=== PATIENT | female | born 1980 | race Asian ===

== ENCOUNTER 2017-09-01 13:06 | Inpatient (IN) | payer OTHER ==
[~2017-09-01] VITALS: Ht 154.9 cm; Wt 63.0 kg
--- NOTE | 2017-09-02 02:41 | NUR ---
09/02/17 0241 Jessica Rivera 0230: PT IS BACK TO [facility] ROOM. SPOUSE AND BABY ARE IN ROOM WHEN WE ARRIVE, ALONG WITH OTHER FAMILY MEMBERS THEY ARE ASKED TO WAIT IN WAITING AREA. IV IN LEFT HAND IS 18G, DRESSING CDI.
--- NOTE | 2017-09-02 14:08 | PR ---
[facility] [address] [facility] [place] [address] Signed PP Progress Notes Datetime Report Generated by CPN: 09/02/2017 14:07 SUBJECTIVE: [id number] Pain: Within normal limits Nausea/Vomiting: Denies Vital Signs: [id number] Vital Signs: Reviewed; Within Normal Limits EXAM: [id number] Abdomen/Uterus: Normal Lochia: Normal Extremities: Normal Incision: Normal IMPRESSION/PLAN/PROCEDURES: [id number] Impression: Normal progression Plan: Continue present management Procedures: None Progress Notes: Doing well, without complaint, tolerating food well. Increase activitiy as tolerated Signing Physician: Cezar Huang MD Copies: ~ *Electronically Signed* 09/02/17 1407 CEZAR HUANG MD PATIENT NAME: SARA DUFFY PROGRESS NOTE DATE OF : 84 PHYSICIAN: CEZAR HUANG MD RPT #: [id number] REPORT IS CONFIDENTIAL AND NOT TO BE RELEASED WITHOUT AUTHORIZATION
--- NOTE | 2017-09-03 12:04 | PR ---
[facility] [address] [place] [address] Signed PP Progress Notes Datetime Report Generated by CPN: 09/03/2017 12:04 SUBJECTIVE: [id number] Pain: Within normal limits Nausea/Vomiting: Denies Vital Signs: [id number] Vital Signs: Reviewed; Within Normal Limits Notable Details: PP Hgb/Hct = 10.9/29.5 EXAM: [id number] Abdomen/Uterus: Normal Lochia: Normal Extremities: Normal Incision: Normal IMPRESSION/PLAN/PROCEDURES: [id number] Impression: Normal progression Plan: Continue present management Procedures: None Progress Notes: Doing well, no complaints. Plan home tomorrow. Signing Physician: Cezar Huang MD Copies: ~ *Electronically Signed* 09/03/17 1204 CEZAR HUANG MD PATIENT NAME: SARA DUFFY PROGRESS NOTE DATE OF : 84 PHYSICIAN: CEZAR HUANG MD RPT #: [id number] REPORT IS CONFIDENTIAL AND NOT TO BE RELEASED WITHOUT AUTHORIZATION
--- NOTE | 2017-09-05 10:02 | PR ---
[facility] [address] [place] [address] Signed PP Progress Notes Datetime Report Generated by CPN: 09/05/2017 10:02 SUBJECTIVE: [id number] Pain: Within normal limits Nausea/Vomiting: Denies Vital Signs: [id number] Vital Signs: Reviewed; Within Normal Limits Notable Details: PP Hgb/Hct = 10.9/29.5 EXAM: [id number] Abdomen/Uterus: Normal Lochia: Normal Extremities: Normal Incision: Normal IMPRESSION/PLAN/PROCEDURES: [id number] Impression: Normal progression Plan: Discharge Procedures: None Progress Notes: Doing well, ready to go home. Signing Physician: Cezar Huang MD Copies: ~ *Electronically Signed* 09/05/17 1002 CEZAR HUANG MD PATIENT NAME: SARA DUFFY PROGRESS NOTE DATE OF : 84 PHYSICIAN: CEZAR HUANG MD RPT #: [id number] REPORT IS CONFIDENTIAL AND NOT TO BE RELEASED WITHOUT AUTHORIZATION
--- NOTE | 2017-09-15 09:54 | OR ---
[facility] [address] [place], [place] [address] Signed DATE OF OPERATION: 09/02/2017 SURGEON: Joe Harper MD PREOPERATIVE DIAGNOSES: Nonreassuring heart rate tracing and oligohydramnios. POSTOPERATIVE DIAGNOSES: Nonreassuring heart rate tracing and oligohydramnios. PROCEDURE: Primary low transverse segment section. Delivery of live female infant. GUARD DANCE HALL: Dr. Perea. ANESTHESIA: Epidural. ESTIMATED BLOOD LOSS: 700 mL. COMPLICATIONS: None. DRAINS: Elkins to bladder. FINDINGS: Live female , Apgars 8 and 9. Weight 7 pounds, 10 ounces. Normal uterus. Normal tubes and ovaries bilateral. DESCRIPTION OF PROCEDURE: The patient was brought to the operating room, placed in supine position. After adequate epidural anesthesia was obtained, she was prepped and draped in usual sterile fashion. A Pfannenstiel skin incision was made with a scalpel. Subcutaneous tissue was then dissected with the Bovie and the fascia nicked with scalpel and extended transverse fashion using curved scissors. The underlying abdominal musculature was bluntly and sharply from the fascia above and below the incision. The abdominal musculature was bluntly and sharply along the midline. The peritoneum was Electronically Signed By: JOE HARPER MD 09/15/17 0954 PATIENT NAME: SARA DUFFY OPERATIVE REPORT DATE OF : 84 REPORT #: [id number] PHYSICIAN: JOE HARPER MD PCP: MONAE CAMPOS PAC REPORT IS CONFIDENTIAL AND NOT TO BE RELEASED WITHOUT AUTHORIZATION [facility] [address] [place], [place] [address] Signed grasped with hemostats, elevated, nicked with Metzenbaum scissors and extended in a vertical fashion using Metzenbaum scissors. The Bernabe self-retaining retractor was inserted into the incision and tightened in place. The lower uterine segment was identified. The bladder noted to be well below the area of dissection. The lower uterine segment was carefully nicked with the scalpel in the midline and finger dissection used to open the incision and extend the incision in a transverse fashion. Infant was noted to be in vertex, NIDIA presentation. The infant's head was deep in the pelvis, but the head was delivered from the incision and then the rest of the infant easily delivered from the incision. The mouth and nose were suctioned with bulb syringe while the cord was doubly clamped and cut. The passed off table in good condition to awaiting nurse. The placenta was manually removed and uterine cavity explored a lap pad to remove any retained membranes. An angle stitch of 0 Monocryl was placed at one end incision and a running locking stitch of 0 Monocryl starting at the other end used to close the incision. A 2nd running stitch of 0 Monocryl was used to imbricate the 1st layer. Good hemostasis was noted. The entire pelvis was irrigated, suctioned, examined and a few superficial bleeding spots were cauterized with the Bovie. When good hemostasis was obtained. The Bernabe retractor was removed. A sheet of ACell placed over lower uterine segment to help with healing and then the peritoneum was closed using running stitch of 2-0 Vicryl suture. The abdominal musculature was reapproximated using interrupted stitches of 0 Vicryl suture. The abdominal wall incision was irrigated, suctioned, examined, and any bleeding spots cauterized with the Bovie. Powdered ACell sprinkled on the abdominal musculature to help with healing and then the fascia closed using two running stitch of 0 Vicryl suture meeting in the midline. Subcutaneous tissue was irrigated, suctioned, examined, and any bleeding spots cauterized with the Bovie. Subcutaneous tissue was sprinkled with remaining powdered ACell and then closed using interrupted stitches of 3-0 Vicryl suture. The skin was reapproximated using skin clips. The patient tolerated the procedure well, went to recovery room in good condition. The sponge, needle, and instrument counts were correct at the end of the procedure. Joe Harper MD MJB/MODL /[id number] cc: Deja Perea MD Electronically Signed By: JOE HARPER MD 09/15/17 0954 PATIENT NAME: SARA DUFFY OPERATIVE REPORT DATE OF : 84 REPORT #: [id number] PHYSICIAN: JOE HARPER MD PCP: MONAE CAMPOS PAC REPORT IS CONFIDENTIAL AND NOT TO BE RELEASED WITHOUT AUTHORIZATION [address] [address] Signed Copies: DEJA PEREA MD ~ Electronically Signed By: JOE HARPER MD 09/15/17 0954 PATIENT NAME: SARA DUFFYLEOLA OPERATIVE REPORT DATE OF : 84 REPORT #: [id number] PHYSICIAN: JOE HARPER MD PCP: MONAE CAMPOS PAC REPORT IS CONFIDENTIAL AND NOT TO BE RELEASED WITHOUT AUTHORIZATION
== END 2017-09-05 12:10 | disposition home or self-care (01) | DRG 765 ==
LOC: FBCO 13:06 → FBC 14:16
PROVIDERS: ADMIT General Practice
PROC: 10D00Z1 Extraction of Products of Conception, Low, Open Approach (ICD-10-PCS; principal; 2017-09-02 01:26)
DX: O76 Abnormality in fetal heart rate and rhythm complicating labor and delivery (principal); O41.03X0 Oligohydramnios, third trimester, not applicable or unspecified; Z3A.40 40 weeks gestation of pregnancy; Z37.0 Single live birth; O77.0 Labor and delivery complicated by meconium in amniotic fluid
CPT/HCPCS: 01960; 01961; 36415; 59025; 76818; 85027; C1763; J0690; J2274; J2370; J2405; J2590; J2795; J3010; J3105; J7120

== ENCOUNTER 2019-08-10 08:58 | Day surgery (SDC) | payer OTHER ==
[~2019-08-10] VITALS: Ht 154.9 cm; Wt 52.2 kg
--- NOTE | ~2019-08-10 | OR ---
[address] [address] [place] DATE OF OPERATION: 08/10/2019 SURGEON: Joe Harper MD Patient of Dr. Harper. PREOPERATIVE DIAGNOSIS: Missed . POSTOPERATIVE DIAGNOSIS: Missed . PROCEDURE: Suction D and C. ANESTHESIA: Monitored anesthesia care (MAC). ESTIMATED BLOOD LOSS: 200 mL. SPECIMEN: Products of conception. DRAINS: None. PACKING: None. FINDINGS: Vagina, no blood. Cervix, thick, closed. Uterus, 8-week size, anterior, normal shape, soft, mobile. No adnexal masses. Moderate amount of normal-appearing tissue within the cavity. COMPLICATIONS: None. DESCRIPTION OF PROCEDURE: The patient was brought to the operating room and placed in supine position. After PATIENT NAME: SARA DUFFY OPERATIVE REPORT DATE OF : 84 REPORT #: [id number] PHYSICIAN: JOE HRAPER MD PCP: MONAE CAMPOS PAC REPORT IS CONFIDENTIAL AND NOT TO BE RELEASED WITHOUT AUTHORIZATION [address] [address] [place] adequate anesthesia was obtained, she was placed in dorsal lithotomy position, prepped and draped in usual sterile fashion. A weighted speculum was placed in the vagina and the anterior lip of the cervix grasped with an Allis clamp. The cervix was then serially dilated up to a #9-Nicaraguan dilator. A #9 curved suction tip curette was then attached to the suction machine and tested under adequate suction. The curette was then carefully introduced into the uterine cavity up to the fundus, and scraped in the 360-degree fashion removing moderate amount of normal-appearing products of conception. The curetting was continued till no additional tissue was removed. 20 units of Pitocin was put in the IV during the procedure. When the curettings were stopped, the Allis clamp was removed and all instruments removed and the uterus was repalpated and noted to be much smaller and more firm. Cervix was noted to have good hemostasis. The patient tolerated the procedure well, went to recovery room in good condition. The sponge and instrument count correct at the end of procedure. Uterine curettings were sent to Pathology for identification. MD DANETTE Jenkins/NATASHA /[id number] Copies: ~ PATIENT NAME: SARA DUFFY OPERATIVE REPORT DATE OF : 84 REPORT #: [id number] PHYSICIAN: JOE HARPER MD PCP: MONAE CAMPOS PAC REPORT IS CONFIDENTIAL AND NOT TO BE RELEASED WITHOUT AUTHORIZATION
[2019-08-10] MEDS ORDERED: FISH OIL 1,0001 EAC5 PO (09:17)
[2019-08-10] MEDS ORDERED: PRENATAL 19 TA1 EACH PO (09:17)
--- NOTE | 2019-08-10 10:50 | NUR ---
08/10/19 1050 Raina Willis 1037- PT ARRIVES TO PACU NONAROUSABLE TO NOXIOUS STIMULI WITH AN OPA IN PLACE AND NEEDING A JAW LIFT TO MAINTAIN AIRWAY PATENCY. RESP EVEN AND UNLABORED. OXYGEN SAT HIGH 90'S TO 100% ON 6L VIA MASK. MAME MCPHERSON RN TAKES OVER JAW LIFT FROM JERRI REYNOLDS CRNA. 1046- PT IS NODDING HER HEAD TO INSTRUCTION AND IS ABLE TAKE OUT HER OWN OPA. 1049- DR. HUANG AT THE BEDSIDE TO TALK WITH THE PT.
--- NOTE | 2019-08-10 11:10 | NUR ---
ICED WATER, CRACKERS AND APPLESAUCE GIVEN. SPOUSE AT THE BEDSIDE. CALL LIGHT WITHIN REACH.
[2019-08-10] MEDS ORDERED: NORCO 5-325 TA1 EACH PO (11:39)
[2019-08-10] MEDS ORDERED: MOTRIN IB200 MG PO (11:40)
--- NOTE | 2019-08-10 13:33 | NUR ---
LE 1240: PATIENT PUSHES HER CALL LIGHT AND ASKS TO GO TO THE BATHROOM. PATIENT AMBULATES WITH STANDBY FROM ME. SHE DOES THAT WELL AND DENIES DIZZINESS. PATIENT VOIDS 150 ML CLEAR YELLOW URINE AND AMBULATES BACK TO HER ROOM. DISCHARGE INSTRUCTIONS ARE GIVEN AND PATIENT AND SPOUSE BOTH VERBALIZE UNDERSTANDING. PATIENT IS GETTING DRESSED IN PRESENCE OF SPOUSE AND THEN SHE TRANSFERS HERSELF TO THE WHEELCHAIR AND THEN TO PERSONAL VEHICLE AND SHE TOLERATES THAT WELL.
== END 2019-08-10 12:55 | disposition home or self-care (01) ==
LOC: OPS 08:58 → DS 08:58 → OPS 09:45 → DS 09:45 → OPS 12:55
PROVIDERS: General Practice
PROC: 10D17ZZ Extraction of Products of Conception, Retained, Via Natural or Artificial Opening (ICD-10-PCS; principal; 2019-08-10 09:45)
DX: O02.1 Missed abortion (principal); Z88.0 Allergy status to penicillin; Z79.899 Other long term (current) drug therapy
CPT/HCPCS: 00952; J1100; J1885; J2001; J2590; J2704; J7121

== ENCOUNTER 2020-11-06 15:15 | Inpatient (IN) | payer OTHER ==
[~2020-11-06] VITALS: Ht 154.9 cm; Wt 65.8 kg
[~2020-11-06 15:15] MED LIST: FISH OIL 1,0001 EAC5 PO; MOTRIN IB200 MG PO; NORCO 5-325 TA1 EACH PO; PRENATAL 19 TA1 EACH PO
--- NOTE | 2020-11-11 08:45 | NUR ---
11/11/20 0845 Raina Willis 0836- PT ARRIVES TO [facility] ROOM [facility]. PT REPORTS NO PAIN OR NAUSEA. RESP EVEN AND UNLABORED. OXYGEN SAT MID TO HIGH 90'S ON RA. BABY TO LEFT BREAST. 20G IV TO THE RIGHT WRIST WITH LR AND 20 UNITS OF PITOCIN. PT REPORTS NO PAIN TO THE IV SITE.
--- NOTE | 2020-11-11 11:06 | OR ---
[facility] [address] [facility] [place], [place] [address] Signed DATE OF OPERATION: 11/11/2020 SURGEON: Joe Harper MD PREOPERATIVE DIAGNOSIS: Term , previous section. POSTOPERATIVE DIAGNOSIS: Term , previous section. PROCEDURE: Repeat low transverse segment section, delivery of a live male infant. WOOD PREPARATION SUPERVISOR: Beatriz Stafford DO. ANESTHESIA: Spinal. ESTIMATED BLOOD LOSS: 600 mL. COMPLICATIONS: None. DRAINS: Elkins to bladder. FINDINGS: Live male , Apgars 9 and 9. Weight 7 pounds 12 ounces. Normal uterus, normal tubes and ovaries bilateral. DESCRIPTION OF PROCEDURE: The patient was brought to the operating room, placed in supine position. After adequate spinal anesthesia was obtained, she was prepped and draped in usual sterile fashion. Elkins catheter was placed in the bladder. A Pfannenstiel skin incision was made through previous surgical scar using a scalpel. Subcutaneous tissue was dissected with the Bovie. The fascia was nicked with scalpel and extended transverse fashion using curved scissors. The underlying abdominal musculature was then bluntly sharply from the fascia above and below the incision. The abdominal musculature Electronically Signed By: JOE HARPER MD 11/11/20 1106 PATIENT NAME: SARA DUFFY OPERATIVE REPORT DATE OF : 84 REPORT #: [id number] PHYSICIAN: JOE HARPER MD PCP: MONAE CAMPOS PAC REPORT IS CONFIDENTIAL AND NOT TO BE RELEASED WITHOUT AUTHORIZATION [facility] [address] [place], [place] [address] Signed was along the midline using finger dissection and scissors. The peritoneum was grasped with hemostats, elevated, nicked with Metzenbaum scissors and extended in a vertical fashion using Metzenbaum scissors. The Bernabe self-retaining retractor was inserted into the incision and tightened in place. The lower uterine segment was identified and carefully nicked with scalpel. Finger dissection was used to extend the incision in transverse fashion. Clear fluid came from the incision. The infant was noted to be in vertex LOP presentation. The 's head easily delivered from the incision. The rest of the was easily delivered from the incision and the cord doubly clamped and cut. The infant was passed off table in good condition to awaiting nurse. The placenta was manually removed. Uterine cavity explored with a lap pad to remove any retained membranes. An angle stitch of 0 Monocryl was placed at one end of the incision and a running locking stitch of 0-Monocryl starting at the other end used to close the incision. A 2nd running stitch of 0 Monocryl was used to imbricate the 1st layer. Good hemostasis was noted. The entire pelvis was irrigated, suctioned, and examined, and any superficial bleeding spots were cauterized with the Bovie. The Bernabe retractor was removed and sheet of ACell placed over the lower uterine segment to help with healing. The anterior wall peritoneum was closed using running stitch of 2-0 Vicryl suture. The abdominal musculature was reapproximated using interrupted stitches of 0 Vicryl suture. The abdominal wall incision was irrigated, suctioned, and examined, and any bleeding spots cauterized with the Bovie. When good hemostasis was obtained, powdered ACell sprinkled over the abdominal musculature to help with healing. The fascia was then closed using two running stitches of 0 Vicryl suture meeting in the midline. The subcutaneous tissue was irrigated, suctioned, and examined, and any bleeding spots cauterized with the Bovie. The subcutaneous tissue was then closed using interrupted stitches of 3-0 Vicryl suture. The skin was reapproximated using skin clips. The patient tolerated the procedure well, went to recovery room in good condition. The sponge, needle, instrument count were correct at the end of the procedure. Joe Harper MD MJB/MODL /[id number] Copies: Electronically Signed By: JOE HARPER MD 11/11/20 1106 PATIENT NAME: SARA DUFFY OPERATIVE REPORT DATE OF : 84 REPORT #: [id number] PHYSICIAN: JOE HARPER MD PCP: MONAE CAMPOS PAC REPORT IS CONFIDENTIAL AND NOT TO BE RELEASED WITHOUT AUTHORIZATION [facility] [address] [place] [id number] Signed ~ Electronically Signed By: JOE HARPER MD 11/11/20 1106 PATIENT NAME: TATISARASHER COMBS [facility] OPERATIVE REPORT DATE OF : 84 REPORT #: [id number] PHYSICIAN: JOE HARPER MD PCP: MONAE CAMPOS PAC REPORT IS CONFIDENTIAL AND NOT TO BE RELEASED WITHOUT AUTHORIZATION
--- NOTE | 2020-11-12 08:36 | PR ---
[facility] [address] [facility] [place] [address] Signed PP Progress Notes Datetime Report Generated by CPN: 11/12/2020 08:36 SUBJECTIVE: [id number] Pain: Within Normal Limits Nausea/Vomiting: Denies Vital Signs: [id number] Vital Signs: Reviewed; Within Normal Limits Notable Details: PP Hjgb/Hct = 9.8/28.5 Abdomen/Uterus: Normal Lochia: Normal Extremities: Normal Incision: Normal IMPRESSION/PLAN/PROCEDURES: [id number] Impression: Normal Progression Plan: Continue Present Management Procedures: None Progress Notes: Doing well, without complaint, tolerating food well, up walking without difficulty. Signing Physician: Cezar Huang MD Copies: ~ *Electronically Signed* 11/12/20 0836 CEZAR HUANG MD PATIENT NAME: SARA DUFFY PROGRESS NOTE DATE OF : 84 PHYSICIAN: CEZAR HUANG MD RPT #: [id number] REPORT IS CONFIDENTIAL AND NOT TO BE RELEASED WITHOUT AUTHORIZATION
--- NOTE | 2020-11-13 09:14 | PR ---
[facility] [address] [place] [address] Signed PP Progress Notes Datetime Report Generated by CPN: 11/13/2020 09:14 SUBJECTIVE: [id number] Pain: Within Normal Limits Nausea/Vomiting: Denies Vital Signs: [id number] Vital Signs: Reviewed; Within Normal Limits Notable Details: PP Hjgb/Hct = 9.8/28.5 Abdomen/Uterus: Normal Lochia: Normal Extremities: Normal Incision: Normal IMPRESSION/PLAN/PROCEDURES: [id number] Impression: Normal Progression Plan: Discharge Procedures: None Progress Notes: Doing well, without complaint, reay to go home. Signing Physician: Cezar Huang MD Copies: ~ *Electronically Signed* 11/13/20913 CEZAR HUANG MD PATIENT NAME: SARA DUFFY PROGRESS NOTE DATE OF : 84 PHYSICIAN: CEZAR HUANG MD RPT #: [id number] REPORT IS CONFIDENTIAL AND NOT TO BE RELEASED WITHOUT AUTHORIZATION
== END 2020-11-13 12:50 | disposition home or self-care (01) | DRG 788 ==
LOC: FBC 11-11 05:40
PROVIDERS: ADMIT General Practice; ATTEND General Practice
PROC: 10D00Z1 Extraction of Products of Conception, Low, Open Approach (ICD-10-PCS; principal; 2020-11-11 07:30)
DX: O34.211 Maternal care for low transverse scar from previous cesarean delivery (principal); N85.8 Other specified noninflammatory disorders of uterus; Z37.0 Single live birth; Z3A.39 39 weeks gestation of pregnancy; Z88.0 Allergy status to penicillin
CPT/HCPCS: 01961; 36415; 85027; A9270; J0690; J1100; J2001; J2274; J2300; J2405; J2590; J3010; J7121